=== PATIENT | female | born 1990 | race Caucasian/White ===

== ENCOUNTER 2016-08-07 20:31 | Emergency (ER) | payer OTHER ==
[~2016-08-07] VITALS: Ht 157.5 cm; Wt 75.5 kg
[~2016-08-07 20:31] MED LIST: ACET500C5 PO
[2016-08-07 20:34] VITALS: Ht 157.5 cm; Wt 75.5 kg
[2016-08-07] MEDS ORDERED: ACETAMINOPHEN 325 MG TAB PO STA (22:33)
[2016-08-07 23:42] LABS: BASOPHIL # 0.1 10^3/ul (0.0-0.1); BASOPHILS % 0.9 % (0.0-2.0); EOSINOPHILS # 0.2 10^3/ul (0.0-0.5); EOSINOPHILS % 1.3 % (0.0-7.0); HEMATOCRIT 36.3 % (37.0-47.0); HEMOGLOBIN 12.4 g/dl (12.0-16.0); LYMPHOCYTES # 2.2 10^3/ul (0.8-2.9); LYMPHOCYTES % 14.5 % (15.0-51.0); MEAN CORPUSCULAR HEMOGLOBIN 29.9 pg (29.0-33.0); MEAN CORPUSCULAR HGB CONC 34.2 g/dl (32.0-37.0); MEAN CORPUSCULAR VOLUME 87.4 fl (82.0-101.0); MEAN PLATELET VOLUME 7.6 fl (7.4-10.4); MONOCYTE # 0.7 10^3/ul (0.3-0.9); MONOCYTES % 4.4 % (0.0-11.0); NEUTROPHIL # 11.7 10^3/ul (1.6-7.5); NEUTROPHILS % 78.9 % (39.0-77.0); PLATELET COUNT 366 10^3/UL (140-440); RED BLOOD COUNT 4.15 10^6/ul (4.20-5.40); RED CELL DISTRIBUTION WIDTH 12.8 % (11.5-14.5); UNCORRECTED WBC 14.8 10^3/ul (4.8-10.8); WHITE BLOOD COUNT 14.8 10^3/ul (4.8-10.8)
--- NOTE | 2016-08-07 23:49 | RADRPT ---
AMENDMENT: 08/07/2016 11:54:42 PM Zia Trejo M.D A call report was made to [<Andie Ely Pa-c>] on [<08/07/2016 11:54:42 PM>]. PROCEDURE: US OB. CLINICAL INDICATION: . Vaginal bleeding. Clinical estimate gestational age is 10 weeks 5 days with estimated date of delivery 02/28/2017. TECHNIQUE: Transabdominal and transvaginal imaging of the gravid uterus was performed. Images are reviewed on a high-resolution PACS workstation. COMPARISON: 07/04/2016 FINDINGS: The uterus is retroverted. There is a single irregularly shaped fluid collection in the endometrial cavity measuring 2.52 x 1.3 x 5.55 cm with mean diameter equals 3.12 cm corresponding to 8 weeks 1 day gestational age. There is appearance of debris in this fluid collection. No normal yolk sac is seen in the fluid collection. No pole is seen in the fluid collection. There is the suggesti on of blood in the endocervical canal. The right ovary is unremarkable measures 2.9 x 2.3 x 1.5 cm. The left ovary is not seen. No adnexal mass seen. Trace free intrapelvic fluid is seen. IMPRESSION: Signal irregularly shaped fluid collection in the endometrial cavity measuring 2.52 x 1.3 x 5.55 cm with mean diameter equals 3.12 cm corresponding to 8 weeks 1 day gestational age. There is appearan ce of debris in this fluid collection. No normal yolk sac is seen in the fluid collection. No feta l pole is seen in the fluid collection. The findings are suggestive of a missed . Suggestive of blood in the endocervical canal. Please see above. RPTAT: HJES .Zia Trejo MD, Date Time Electronically viewed and signed by .Zia Trejo MD, on 08/07/2016 23:54 .S/
[2016-08-07 23:54] LABS: CONDITION 1
[2016-08-08 01:36] LABS: ADD UMIC YES; URINE BILIRUBIN (Dip) NEGATIVE (NEGATIVE); URINE BLOOD (Dip) 3+ (NEGATIVE); URINE GLUCOSE (Dip) NEGATIVE (NEGATIVE); URINE KETONES (Dip) TRACE (NEGATIVE); URINE LEUKOCYTE ESTERASE (Dip) NEGATIVE (NEGATIVE); URINE NITRITE (Dip) NEGATIVE (NEGATIVE); URINE TOTAL PROTEIN (Dip) 2+ (NEGATIVE); URINE UROBILINOGEN (Dip) 1.0 E.U./dL (0.1-1.0)
[2016-08-08 01:52] LABS: BACTERIA,URINE OCCASIONAL; SQUAMOUS EPITHELIAL CELL,UR OCCASIONAL; URINE COLOR RED (YELLOW); URINE RBCS >200 /HPF (0)
[2016-08-08] MEDS ORDERED: IBUP-1542 PO (02:51)
[2016-08-08] MEDS ORDERED: HYDROCODONE/APAP (10/325) TAB PO ONE (03:00)
[2016-08-08 03:29] VITALS: BP 119/70; PULSE 87; RESP 18
--- NOTE | 2016-08-08 03:49 | ERD ---
ER Documentation Chief Complaint Date/Time DATE: 08/08/16 TIME: 03:41 Chief Complaint 9 wks , vag bleeding 5 minutes ago HPI 26-year-old female with no significant past medical history presents to the ED who is a presents the ED complaining of vaginal bleeding that has been intermittently going on for the last 3 weeks. States that today she felt like she was passing blood clots and vaginal tissue. States that she is followed up with her CLIENT CARE SPECIALIST and her last ultrasound on July 04, 2016 showed an abnormal gestational sac with a nonviable possible twin gestation. Reports that she has lower abdominal cramps. States that her last menses was on May 24, 2016. Denies any abdominal pain, chest pain, shortness of breath, nausea, vomiting, diarrhea, vaginal discharge. ROS All systems reviewed and are negative except as per history of present illness. Medications Home Meds Active Scripts Ibuprofen* (Motrin*) 600 Mg Tab, 600 MG PO Q6, #30 TAB Prov:ANDIE CATALAN PA-C 08/08/16 Acetaminophen* (Tylophen*) 500 Mg Capsule, 1 CAP PO Q6H Y for PAIN AND OR ELEVATED TEMP, #20 CAP Prov:PHIL ESCOBAR NP 07/01/16 Reported Medications [none] Unknown Strength No Conflict Check 07/01/16 Allergies Allergies: Coded Allergies: No Known Allergy (Unverified , 07/04/16) PMhx/Soc History of Surgery: No Anesthesia Reaction: No Hx Neurological Disorder: No Hx Respiratory Disorders: No Hx Cardiac Disorders: No Hx Psychiatric Problems: No Hx Miscellaneous Medical Probl: Yes (polycystic ovarian syndrome) Hx Alcohol Use: No Hx Substance Use: No Hx Tobacco Use: No Smoking Status: Unknown if ever smoked Physical Exam Vitals Vital Signs Date Time Temp Pulse Resp B/P Pulse Ox O2 Delivery O2 Flow Rate FiO2 08/08/16 03:29 87 18 119/70 100 Room Air 08/07/16 20:34 98.3 88 20 124/99 100 Physical Exam Const: Ldj-jkt-ogjutbiyv, well-nourished. In no acute distress. Head: Atraumatic, normocephalic Eyes: Normal Conjunctiva without injection. No purulent discharge. ENT: Normal external ear, nose. Moist oropharynx without tonsillar exudates. Non -erythematous pharynx. Uvula midline. No drooling. No trismus. Neck: No cervical midline tenderness. Full range of motion. No meningismus. No cervical lymphadenopathy. No JVD. Resp: Clear to auscultation bilaterally. No wheezing, rhonchi, rales, or crackles. No accessory muscle use. No retractions. Cardio: Regular rate and rhythm. No murmurs, rubs or gallops. Abd: Soft, slight lower suprapubic cramping upon palpation, non distended. Normal bowel sounds. No palpable masses. No rebound tenderness. No guarding. Negative McBurney's point. Negative psoas sign. Negative obturator sign. : See exam in MDM. Skin: No petechiae or rashes Back: No midline tenderness. No CVA tenderness. Ext: No cyanosis, or edema. Neur: Awake and alert. Normal gait. Normal coordination. Psych: Normal Mood and Affect Result Diagram: 08/07/16 2640 Results 24 hrs Laboratory Tests Test 08/07/16 22:30 08/07/16 23:30 08/08/16 01:00 Beta HCG, Quantitative 48126.0mIU/ml Basophils # 0.110^3/ul Basophils % 0.9% Eosinophils # 0.210^3/ul Eosinophils % 1.3% Hematocrit 36.3% Hemoglobin 12.4g/dl Lymphocytes # 2.210^3/ul Lymphocytes % 14.5% Mean Corpuscular Hemoglobin 29.9pg Mean Corpuscular Hemoglobin Concent 34.2g/dl Mean Corpuscular Volume 87.4fl Mean Platelet Volume 7.6fl Monocytes # 0.710^3/ul Monocytes % 4.4% Neutrophils # 11.710^3/ul Neutrophils % 78.9% Nucleated Red Blood Cells # 0.010^3/ul Nucleated Red Blood Cells % 0.0/100WBC Platelet Count 30893^3/UL Red Blood Count 4.1510^6/ul Red Cell Distribution Width 12.8% White Blood Count 14.810^3/ul Urine Bacteria OCCASIONAL Urine Bilirubin NEGATIVE Urine Clarity CLEAR Urine Color RED Urine Glucose NEGATIVE% Urine Hemoglobin 3+ Urine Ketones TRACE Urine Leukocyte Esterase NEGATIVE Urine Microscopic RBC >200/HPF Urine Microscopic WBC 0-2/HPF Urine Nitrite NEGATIVE Urine Specific [place] 1.025 Urine Squamous Epithelial Cells OCCASIONAL Urine Total Protein 2+ Urine Urobilinogen 1.0 E.U./dL Urine pH 6.5 Current Medications Medications (Trade) Dose Ordered Sig/Jorge Route PRN Reason Start Time Stop Time Status Last Admin Dose Admin Acetaminophen (Tylenol Tab) 650 mg ONCE STAT PO 08/07/16 22:33 08/07/16 22:36 DC 08/07/16 22:48 Acetaminophen/ Hydrocodone Bitart ([place] (10/325)) 1 tab ONCE ONCE PO 08/08/16 03:00 08/08/16 03:01 DC 08/08/16 02:50 Procedures/MDM This is a 26-year-old female with a past medical history of PCOS is a presents the ED complaining of vaginal bleeding. Patient is afebrile and nontoxic-appearing. Patient has normal vital signs. An ultrasound, beta-hCG, CBC, type and RH, UA was ordered to evaluate patient. Patient was initially treated with Tylenol for her pain. CBC: No evidence of severe infection or anemia Urine: No elevation in nitrites, leukocyte esterase, hematuria. No evidence of UTI Rh: A positive. No indication for Rhogam at this time. beta Hc,223 has now down trended from July 04, 2016's beta hCG which was 14,102. AMENDMENT: 08/07/2016 11:54:42 PM Zia Cordero call report was made to [<Andie Catalan Pa-c>] on [<08/07/2016 11:54:42 PM> ]. PROCEDURE: US OB. CLINICAL INDICATION: . Vaginal bleeding. Clinical estimate gestational age is 10 weeks 5 days with estimated date of delivery 02/28/2017. TECHNIQUE: Transabdominal and transvaginal imaging of the gravid uterus was performed. Images are reviewed on a high-resolution PACS workstation. COMPARISON: 07/04/2016 FINDINGS: The uterus is retroverted. There is a single irregularly shaped fluid collection in the endometrial cavity measuring 2.52 x 1.3 x 5.55 cm with mean diameter equals 3.12 cm corresponding to 8 weeks 1 day gestational age. There is appearance of debris in this fluid collection. No normal yolk sac is seen in the fluid collection. No pole is seen in the fluid collection. There is the suggestion of blood in the endocervical canal. The right ovary is unremarkable measures 2.9 x 2.3 x 1.5 cm. The left ovary is not seen. No adnexal mass seen. Trace free intrapelvic fluid is seen. IMPRESSION: Signal irregularly shaped fluid collection in the endometrial cavity measuring 2.52 x 1.3 x 5.55 cm with mean diameter equals 3.12 cm corresponding to 8 weeks 1 day gestational age. There is appearance of debris in this fluid collection. No normal yolk sac is seen in the fluid collection. No pole is seen in the fluid collection. The findings are suggestive of a missed . Suggestive of blood in the endocervical canal. Please see above. This case was discussed with the left breast weight control lecturer, Dr. Negrete who also evaluated patient at this time. Dr. Negrete did a pelvic exam which had some vaginal tissue in the vaginal canal. She removed the tissue with forceps with no complications or difficulty. Patient gave consent for the pelvic exam. Patient's bleeding symptoms have stabilized while in the department. Patient likely had a complete miscarriage as the cervical office has please close after vaginal tissue removal. Low suspicion for symptomatic anemia, ectopic , sepsis, PID, appendicitis, ovarian torsion, tubo-ovarian abscess, surgical abdomen, or other emergent conditions. Patient was given [place] here in the ED with improvement of her pain. Discharge vacations: Ibuprofen Patient to follow up with CLIENT CARE SPECIALIST in 2 days for further evaluation and treatment. Patient is to return sooner to the ED for any worsening symptoms. Patient's questions were answered. Patient understood and agreed with discharge plan. Departure Diagnosis: Primary Impression: Miscarriage Condition: Stable Patient Instructions: Miscarriage Referrals: [facility] YOU HAVE RECEIVED A MEDICAL SCREENING EXAM AND THE RESULTS INDICATE THAT YOU DO NOT HAVE A CONDITION THAT REQUIRES URGENT TREATMENT IN THE EMERGENCY DEPARTMENT. FURTHER EVALUATION AND TREATMENT OF YOUR CONDITION CAN WAIT UNTIL YOU ARE SEEN IN YOUR DOCTORS OFFICE WITHIN THE NEXT 1-2 DAYS. IT IS YOUR RESPONSIBILITY TO MAKE AN APPOINTMENT FOR FOLOW-UP CARE. IF YOU HAVE A PRIMARY DOCTOR --you should call your primary doctor and schedule an appointment IF YOU DO NOT HAVE A PRIMARY DOCTOR YOU CAN CALL OUR PHYSICIAN REFERRAL HOTLINE AT IF YOU CAN NOT AFFORD TO SEE A PHYSICIAN YOU CAN CHOSE FROM THE FOLLOWING [facility] [address] [facility]. [facility] [address] [facility]. [facility] [address] [facility] [address] [facility]. [facility] [address] [facility]. [facility]. [address] [facility]. [facility] YOU HAVE RECEIVED A MEDICAL SCREENING EXAM AND THE RESULTS INDICATE THAT YOU DO NOT HAVE A CONDITION THAT REQUIRES URGENT TREATMENT IN THE EMERGENCY DEPARTMENT. FURTHER EVALUATION AND TREATMENT OF YOUR CONDITION CAN WAIT UNTIL YOU ARE SEEN IN YOUR DOCTORS OFFICE WITHIN THE NEXT 1-2 DAYS. IT IS YOUR RESPONSIBILITY TO MAKE AN APPOINTMENT FOR FOLOW-UP CARE. IF YOU HAVE A PRIMARY DOCTOR --you should call your primary doctor and schedule and appointment IF YOU DO NOT HAVE A PRIMARY DOCTOR YOU CAN CALL OUR PHYSICIAN REFERRAL HOTLINE AT . IF YOU CAN NOT AFFORD TO SEE A PHYSICIAN YOU CAN CHOSE FROM THE FOLLOWING [facility] INSTITUTIONS: [facility] [address] [place] [address] [facility] [address] [place] [address] [facility] [address] [place] [address] [facility] URGENT CARE/SPECIALTIES CLIENT CARE SPECIALIST [place] [address] [facility] [address] [place], [place] [id number] OFFICE FAX JEFF MCGEE [address] [place], [place] [id number] [address] [place] [address] [place], [place] [id number] DONNELL GAO [address] [facility], [address] [address] [address] [address] [place] [id number] [facility] [address] [place], [place] [address] [address] [facility] [id number] - DR LOVE, CARI [address], [facility] [address] [address] VELAZQUEZ, ALICJA [address] [facility]. [address], [facility] [address] [address] DE LA O, [facility] [address] [place] [address] [facility] Hours: 8:00 am - 5:00 pm Additional Instructions: FOLLOW UP WITH YOUR CLIENT CARE SPECIALIST IN 2 DAYS FOR FURTHER CARE AND TREATMENT. Return to this facility if you are not improving as expected. ANDIE CATALAN PA-C Aug 08, 2016 03:49
== END 2016-08-08 03:25 | disposition home or self-care (01) ==
LOC: FTE 20:31
DX: O03.9 Complete or unspecified spontaneous abortion without complication (principal)
CPT/HCPCS: 76801; 76817; 81001; 84702; 85025; 86900; 86901; Z7502; Z7610; 81003; 88305

== ENCOUNTER 2018-08-18 15:31 | Emergency (ER) | payer OTHER ==
[~2018-08-18] VITALS: Ht 154.9 cm; Wt 81.1 kg
[~2018-08-18 15:31] MED LIST changes: +IBUP-1542 PO
[2018-08-18 15:39] VITALS: BP 148/83; PULSE 91; RESP 18; Ht 154.9 cm; Wt 81.1 kg
[2018-08-18] MEDS ORDERED: ACETAMINOPHEN 325 MG TAB PO ONE (16:30)
[2018-08-18] MEDS ORDERED: ACET325T33 PO (17:39)
[2018-08-18] MEDS ORDERED: NITR-58 PO (17:39)
--- NOTE | 2018-08-18 19:42 | ERD ---
ER Documentation Chief Complaint Chief Complaint 12WKS PREG, CRAMPING PAIN SINCE NOON, SCANT VAG BLEEDING WHEN WIPING HPI This patient is a 28-year-old female who is reportedly 12 weeks , AB 2, last menstrual cycle May 20, 2018 presenting to the emergency department complaining of suprapubic cramping which she rates 5/10 in severity and intermittent. This started today. She states she had an ultrasound at 9 we eks of her which was reportedly normal. Her APPRENTICE PAINTER HAND physician is Dr. Mead at [facility]. She also reports some mild dysuria. She denies any lower abdominal pain, fevers, chills, or other symptoms at this time. ROS All systems reviewed and are negative except as per history of present illness. Medications Home Meds Active Scripts Nitrofurantoin Monohyd Macrocr* (Macrobid*) 100 Mg Capsr, 100 MG PO BID for 7 Days, #14 CAP Prov:NENO RICARDO PA-C 08/18/18 Acetaminophen* (Tylenol*) 325 Mg Tablet, 2 TAB PO Q6 PRN for PAIN AND OR ELEVATED TEMP, #20 TAB Prov:NENO RICARDO PA-C 08/18/18 Ibuprofen* (Motrin*) 600 Mg Tab, 600 MG PO Q6, #30 TAB Prov:MARYANN CATALAN PA-C 08/08/16 Acetaminophen* (Tylophen*) 500 Mg Capsule, 1 CAP PO Q6H PRN for PAIN AND OR ELEVATED TEMP, #20 CAP Prov:PHIL ESCOBAR NP 07/01/16 Reported Medications [none] Unknown Strength No Conflict Check 07/01/16 Allergies Allergies: Coded Allergies: No Known Allergy (Unverified , 07/04/16) PMhx/Soc History of Surgery: No Anesthesia Reaction: No Hx Neurological Disorder: No Hx Respiratory Disorders: No Hx Cardiac Disorders: No Hx Psychiatric Problems: No Hx Miscellaneous Medical Probl: Yes (polycystic ovarian syndrome) Hx Alcohol Use: No Hx Substance Use: No Hx Tobacco Use: No FmHx Family History: No diabetes Physical Exam Vitals Vital Signs Date Temp Pulse Resp B/P (MAP) Pulse Ox O2 O2 Flow FiO2 Time Delivery Rate 08/18/18 98.5 91 18 148/83 99 15:39 (104) Physical Exam Const: No acute distress Head: Atraumatic Eyes: Normal Conjunctiva ENT: Normal External Ears, Nose and Mouth. Neck: Full range of motion. No meningismus. Resp: Clear to auscultation bilaterally Cardio: Regular rate and rhythm, no murmurs Abd: Soft, non tender, non distended. Normal bowel sounds. Mild tenderness palpation in the suprapubic region bilaterally. No rebound tenderness or guarding. No McBurney's point tenderness. Skin: No petechiae or rashes Back: No midline or flank tenderness Ext: No cyanosis, or edema Neur: Awake and alert Psych: Normal Mood and Affect Result Diagram: 08/18/18 1616 Results 24 hrs Laboratory Tests Test 08/18/18 16:16 White Blood Count 9.3 10^3/ul Red Blood Count 4.00 10^6/ul Hemoglobin 11.8 g/dl Hematocrit 34.7 % Mean Corpuscular Volume 86.8 fl Mean Corpuscular Hemoglobin 29.5 pg Mean Corpuscular Hemoglobin Concent 34.0 g/dl Red Cell Distribution Width 11.9 % Platelet Count 287 10^3/UL Mean Platelet Volume 9.3 fl Immature Granulocytes % 0.300 % Neutrophils % 71.1 % Lymphocytes % 18.6 % Monocytes % 7.1 % Eosinophils % 2.5 % Basophils % 0.4 % Nucleated Red Blood Cells % 0.0 /100WBC Immature Granulocytes # 0.030 10^3/ul Neutrophils # 6.6 10^3/ul Lymphocytes # 1.7 10^3/ul Monocytes # 0.7 10^3/ul Eosinophils # 0.2 10^3/ul Basophils # 0.0 10^3/ul Nucleated Red Blood Cells # 0.0 10^3/ul Urine Color YELLOW Urine Clarity CLOUDY Urine pH 7.0 Urine Specific [place] 1.010 Urine Ketones NEGATIVE mg/dL Urine Nitrite NEGATIVE mg/dL Urine Bilirubin NEGATIVE mg/dL Urine Urobilinogen NEGATIVE mg/dL Urine Leukocyte Esterase 1+ David/ul Urine Microscopic RBC 3 /HPF Urine Microscopic WBC 13 /HPF Urine Squamous Epithelial Cells FEW /HPF Urine Bacteria FEW /HPF Urine Hemoglobin 1+ mg/dL Urine Glucose NEGATIVE mg/dL Urine Total Protein NEGATIVE mg/dl Beta HCG, Quantitative 81467.0 mIU/ml Current Medications Medications Dose Sig/Jorge Start Time Status Last (Trade) Ordered Route PRN Stop Time Admin Dose Reason Admin 650 mg ONCE ONCE 08/18/18 DC 08/18/18 Acetaminophen PO 16:30 08/18/18 16:14 (Tylenol 16:31 Tab) [place] [address] Radiology Main Line: [phone] DIAGNOSTIC IMAGING REPORT Patient: TYRONE MEJIA : 1990 Age: 28 Sex: F MR #: [id number] DOS: 08/18/18 0000 Ordering MD: NENO RICARDO PA-C Location: [facility] Room/Bed: PROCEDURE: US OB. CLINICAL INDICATION: Vaginal bleeding TECHNIQUE: Transabdominal views of the pelvis are available for review. COMPARISON: No prior studies are available for comparison. FINDINGS: There is a single intrauterine gestation with the crown-rump length measuring 6.9 cm, corresponding to a gestational age of 13 weeks and 1 day. The heart rate is noted at 146 bpm. The ovaries are not visualized. The cervix measures 3.3 cm in length. The placenta is right lateral. There is no evidence of placental abruption. There is no free fluid. RPTAT: AA IMPRESSION: Single live intrauterine with an estimated gestational age of 13 weeks and 1 day, based on ultrasound measurements. DEIDRE based on ultrasound measurements is 02/22/19. .Shamar Rucker MD, MD Date Time Electronically viewed and signed by .Shamar Rucker MD, MD on 08/18/2018 16:40 .S/ CC: NENO RICARDO PA-C [phone] Procedures/MDM This patient is a 28-year-old female presenting to the emergency department with vaginal bleeding at roughly 12-13 weeks gestation. Signs and symptoms consistent with threatened . Obstetrics ultrasound showed a live intrauterine with heart tones. The full report from the radiologist may be viewed above. Urinalysis did show mild urinary tract infection. Beta hCG was consistent with term of . The patient is stable and appropriate for further treatment as an outpatient. She is nontoxic and well-appearing. The patient agreed with the diagnosis, plan, need for follow-up, return precautions. She was advised to have 24-48-hour follow-up with her APPRENTICE PAINTER HAND physician. All questions and concerns were addressed prior to discharge. No evidence of emergent pathology at time of discharge. Disclaimer: Inadvertent spelling and grammatical errors are likely due to EHR/dictation software use and do not reflect on the overall quality of patient care. Also, please note that the electronic time recorded on this note does not necessarily reflect the actual time of the patient encounter. Departure Diagnosis: Primary Impression: Vaginal bleeding in patient at less than 20 weeks ges... Additional Impression: UTI (urinary tract infection) Condition: Fair Patient Instructions: Understanding Urinary Tract Infections (UTIs), Bleeding During Early Additional Instructions: Call your primary care doctor TOMORROW for an appointment during the next 1-2 days.See the doctor sooner or return here if your condition worsens before your appointment time. NENO RICARDO PA-C Aug 18, 2018 19:42
== END 2018-08-18 17:58 | disposition home or self-care (01) ==
LOC: FTE 15:31
DX: O20.9 Hemorrhage in early pregnancy, unspecified (principal); O23.41 Unspecified infection of urinary tract in pregnancy, first trimester; Z3A.13 13 weeks gestation of pregnancy
CPT/HCPCS: 36415; 76801; 81001; 84702; 85025; 86900; 86901